=== PATIENT | male | born 1985 | race Caucasian/White ===

== ENCOUNTER 2018-08-06 03:44 | Emergency (ER) | payer SELFPAY ==
[~2018-08-06] VITALS: Ht 185.4 cm; Wt 146.1 kg
--- NOTE | 2018-08-06 04:00 | NUR ---
NOT IN WAITING ROOM
[2018-08-06 04:26] VITALS: BP 138/107
== END 2018-08-06 04:28 | disposition home or self-care (01) ==
LOC: ER 03:44
DX: F41.1 Generalized anxiety disorder (principal); F31.12 Bipolar disorder, current episode manic without psychotic features, moderate
CPT/HCPCS: 99282

== ENCOUNTER 2018-10-11 01:36 | Emergency (ER) | payer SELFPAY ==
[~2018-10-11] VITALS: Ht 185.4 cm; Wt 146.1 kg
--- NOTE | 2018-10-11 02:07 | NUR ---
PATIENT ADMITS TO SI CURRENTLY, STATING, "I JUST WANT TO ." PATIENT STATES LAST SUICIDE ATTEMPTS WAS 5DAYS AGO WITH OD OF ASPIRIN. PATIENT WITHOUT CLEAR PLAN. DENIES HOMICIDAL IDEATIONS AT THIS TIME. WILL CONTINUE TO MONITOR
[2018-10-11] MEDS ORDERED: ZIPRASIDONE 20 MG VIAL IM STA (02:09)
[2018-10-11 02:32] LABS: BASOPHILS # (AUTO) 0.1 (0.0-0.1); BASOPHILS % 0.5 % (0.0-1.0); EOSINOPHILS # (AUTO) 0.1 (0.0-0.4); EOSINOPHILS % 0.9 % (0.0-6.0); HEMOGLOBIN 14.8 g/dL (14.0-18.0); LYMPHOCYTES # (AUTO) 3.2 (1.0-3.2); LYMPHOCYTES % 30.3 % (18.0-39.1); MEAN CORPUSCULAR HEMOGLOBIN 31.4 pg (28-32); MEAN CORPUSCULAR HGB CONC 35.2 g/dL (31-35); MONOCYTES # (AUTO) 1.2 (0.2-0.8); MONOCYTES % 11.3 % (4.4-11.3); NEUTROPHILS % 56.8 % (38.7-80.0); PLATELET COUNT 284 x10e3/uL (140-360); RED BLOOD COUNT 4.72 x10e6/uL (4.3-5.7); RED CELL DISTRIBUTION WIDTH 12.4 % (11.7-14.4)
[2018-10-11 02:55] LABS: ALANINE AMINOTRANSFERASE 46 IU/L (0-55); ALBUMIN 3.8 g/dL (3.5-5.0); ALBUMIN/GLOBULIN RATIO 1.3 (0.8-2.0); ALKALINE PHOSPHATASE 58 IU/L (40-150); ANION GAP 14.3 mmol/L (8-16); BLOOD UREA NITROGEN 18 mg/dL (7-26); BUN/CREATININE RATIO 18 (6-25); CALCIUM 9.3 mg/dL (8.4-10.2); CARBON DIOXIDE 21 mmol/L (22-29); CHLORIDE 107 mmol/L (98-107); CREATINE KINASE 1201 IU/L (30-200); CREATININE, SERUM 1.02 mg/dL (0.72-1.25); EST GLOMERULAR FILTRATION RATE > 60 ML/MIN (60-); GLUCOSE 96 mg/dL (74-118); POTASSIUM 3.3 mmol/L (3.5-5.1); SODIUM 139 mmol/L (136-145)
[2018-10-11 02:56] LABS: ACETAMINOPHEN < 3 ug/mL (10-30); SALICYLATE < 5.0 mg/dL (0-30)
[2018-10-11] MEDS ORDERED: SODIUM CHLORIDE 0.9% 1000ML 1,000 ML IV SCH (03:30)
[2018-10-11 03:42] LABS: AMPHETAMINES SCREEN,URINE POSITIVE (NEGATIVE); BENZODIAZEPINES SCREEN,URINE NEGATIVE (NEGATIVE); PHENCYCLIDINE SCREEN,URINE NEGATIVE (NEGATIVE)
--- NOTE | 2018-10-11 03:50 | NUR ---
MAT TEAM CALLED FOR ASSESSMENT
--- NOTE | 2018-10-11 07:00 | NUR ---
RECEIVED REPORT FROM OFF GOING NURSE. PATIENT IN ROOM IN BED. RESTING QUIETLY WITH EYES CLOSED. WILL CONTINUE TO MONITOR.
--- NOTE | 2018-10-11 08:01 | NUR ---
report to belle victoria
--- NOTE | 2018-10-11 09:15 | NUR ---
PATIENT IN ROOM IN BED. RESTING QUIETLY WITH EYES CLOSED. NO S/S OF ACUTE DISTRESS. RESP EVEN AND NONLABORED. BED DOWN 1:1 SITTER IN ROOM.
[2018-10-11 09:53] VITALS: BP 113/76
--- NOTE | 2018-10-11 10:08 | NUR ---
PATIENT IN ROOM IN BED. RESTING QUIETLY WITH EYES CLOSED. NO S/S OF ACUTE DISTRESS. 1:1 SITTER AT BEDSIDE.
--- NOTE | 2018-10-11 11:20 | NUR ---
PATIENT AWAKE AND SITTING AT BEDSIDE. NO S/S OF ACUTE DISTRESS. PATIENT COOPERATIVE AND POLITE. 1:1 SITTER AT BEDSIDE.
--- NOTE | 2018-10-11 13:17 | NUR ---
GOT PHONE CALL FROM [facility] [employer] AND STATES THAT THEY NEED CARDIAC MARKERS REDRAWN DUE TO [employer] AND [employer]. TO FAX TO NUMBER [phone]
--- NOTE | 2018-10-11 13:50 | NUR ---
patient in room in bed. awake and alert. no s/s of acute distress. resp even and nonlabored. 1:1 sitter in room with patient.
[2018-10-11] MEDS ORDERED: SODIUM CHLORIDE 0.9% 1000ML 1,000 ML IV STA (14:01)
[2018-10-11 15:08] LABS: CREATINE KINASE MB 7.6 ng/mL (0-5.0)
[2018-10-11] MEDS ORDERED: LORAZEPAM INJ 2 MG/ML VIAL IV PRN (15:45)
--- NOTE | 2018-10-11 16:13 | NUR ---
iv discontinued due to patient reports of discomfort. patient AAO, is very anxious and aggitated. received order for prn ativan ivp. 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
--- NOTE | 2018-10-11 17:04 | NUR ---
PATIENT IN ROOM IN BED. RESTING QUIETLY WITH EYES CLOSED. NO S/S OF ACUTE DISTRESS. 1:1 SITTER IN ROOM
--- NOTE | 2018-10-11 18:19 | NUR ---
PATIENT IN ROOM IN BED. NO S/S OF ACUTE DISTRESS. 1:1 SITTER AT BEDSIDE. PENDING ROOM ASSIGNMENT.
[2018-10-11] MEDS ORDERED: LORAZEPAM 1 MG TAB PO PRN (19:00)
[2018-10-11] MEDS ORDERED: ACETAMINOPHEN 325 MG TAB ONE (22:09)
[2018-10-11] MEDS ORDERED: ACETAMINOPHEN 325 MG TAB PO PRN (22:15)
--- NOTE | 2018-10-11 23:22 | NUR ---
PT REQUESTING ATIVAN AND "SOMETHING TO EAT". PT GIVEN PO ATIVAN PER ORDER AND SANDWICH. VSS PT A&O X4, NAD NOTED
--- NOTE | 2018-10-12 00:56 | NUR ---
SPOKE TO PETER AT [facility] FOR STATUS UPDATE, PETER STATES THAT "HE (PT) IS JUST WAITING ON A BED, BUT IT WILL PROBABLY BE SUNDAY OR SUNDAY BECAUSE WE ([facility]) DO NOT DISCHARGE ON THE WEEKEND."
--- NOTE | 2018-10-12 01:05 | NUR ---
DR GARCIA AT BEDSIDE, REEVALUATED PT, PT DENIES SUICIDAL OR HOMICIDAL IDEATION. PT STATES HE WOULD LIKE TO GO HOME IN THE MORNING WITH PRESCRIPTION FOR RISPERDAL.
--- NOTE | 2018-10-12 05:10 | NUR ---
DR GARCIA SPOKE TO PT AT LENGTH, PT CONTINUES TO DENY SUICIDAL OR HOMICIDAL IDEATION. PT READ AND SIGNED NO SUICIDE CONTRACT AND GIVEN A COPY. PT DISCHARGED HOME WITH PRESCRIPTION FOR RISPERDAL.
== END 2018-10-12 05:22 | disposition home or self-care (01) ==
LOC: ER 01:36
DX: F25.0 Schizoaffective disorder, bipolar type (principal); F15.129 Other stimulant abuse with intoxication, unspecified
CPT/HCPCS: 36415; 80053; 80307; 80320; 80329 ×2; 82550; 82553; 84484; 85025; 93005; 99284; J2060; J3486; J7030

== ENCOUNTER 2018-11-26 18:48 | Emergency (ER) | payer SELFPAY ==
[~2018-11-26] VITALS: Ht 185.4 cm; Wt 146.1 kg
== END 2018-11-26 19:30 | disposition left against medical advice (07) ==
LOC: ER 18:48
DX: F31.9 Bipolar disorder, unspecified (principal); F20.0 Paranoid schizophrenia; F60.3 Borderline personality disorder; M10.9 Gout, unspecified

== ENCOUNTER → 2018-11-26 | Emergency (ER) ==
--- NOTE | 2018-11-26 21:05 | NUR ---
ACCOUNT CREATED BY MISTAKE. THIS IS A DUPLICATE ACCOUNT. PT ALREADY D/C OFF TRACKER.
== END | disposition left against medical advice (07) ==
LOC: ER 18:41
DX: R69 Illness, unspecified (principal)

== ENCOUNTER 2020-06-20 22:13 | Emergency (ER) | payer SELFPAY ==
[~2020-06-20] VITALS: Ht 185.4 cm; Wt 146.1 kg
[2020-06-20] MEDS ORDERED: IBUPROFEN 600 MG TAB PO STA (23:01)
[2020-06-20] MEDS ORDERED: IBUPROFEN 600 MG TAB ONE (23:13)
[2020-06-20] MEDS ORDERED: NAPROSYN500 MG PO (23:43)
== END 2020-06-21 01:20 | disposition home or self-care (01) ==
LOC: FSED 23:01
DX: S33.5XXA Sprain of ligaments of lumbar spine, initial encounter (principal); W01.0XXA Fall on same level from slipping, tripping and stumbling without subsequent striking against object, initial encounter; Y93.01 Activity, walking, marching and hiking; Y92.512 Supermarket, store or market as the place of occurrence of the external cause; F20.9 Schizophrenia, unspecified; F17.210 Nicotine dependence, cigarettes, uncomplicated
CPT/HCPCS: 71046; 72100; 99282

== ENCOUNTER 2020-07-31 11:06 | Emergency (ER) | payer SELFPAY ==
[~2020-07-31] VITALS: Ht 188 cm; Wt 129.3 kg
[~2020-07-31 11:06] MED LIST: NAPROSYN500 MG PO
[2020-07-31] MEDS ORDERED: RISPERIDONE 1 MG TAB PO STA (11:18)
[2020-07-31 12:06] VITALS: BP 165/95
== END 2020-07-31 12:07 | disposition home or self-care (01) ==
LOC: ER 11:20
DX: F20.9 Schizophrenia, unspecified (principal); F31.9 Bipolar disorder, unspecified; M10.9 Gout, unspecified
CPT/HCPCS: 99282

== ENCOUNTER 2020-12-09 05:53 | Emergency (ER) | payer SELFPAY ==
[~2020-12-09] VITALS: Ht 188 cm; Wt 129.3 kg
[2020-12-09 06:23] LABS: BASOPHILS # (AUTO) 0.1 (0.0-0.1); BASOPHILS % 0.3 % (0.0-1.0); EOSINOPHILS # (AUTO) 0.1 (0.0-0.4); EOSINOPHILS % 0.3 % (0.0-6.0); HEMATOCRIT 44.3 % (38.2-49.6); HEMOGLOBIN 14.7 g/dL (14.0-18.0); LYMPHOCYTES # (AUTO) 2.9 (1.0-3.2); LYMPHOCYTES % 17.6 % (18.0-39.1); MEAN CORPUSCULAR HEMOGLOBIN 30.2 pg (28-32); MEAN CORPUSCULAR HGB CONC 33.2 g/dL (31-35); MONOCYTES # (AUTO) 1.1 (0.2-0.8); MONOCYTES % 6.9 % (4.4-11.3); NEUTROPHILS # (AUTO) 12.4 (2.1-6.9); NEUTROPHILS % 74.4 % (38.7-80.0); PLATELET COUNT 255 x10e3/uL (140-360); RED BLOOD COUNT 4.87 x10e6/uL (4.3-5.7); RED CELL DISTRIBUTION WIDTH 13.1 % (11.7-14.4)
[2020-12-09] MEDS ORDERED: RISPERDAL1 MG PO ×2 (06:26→09:22)
[2020-12-09 06:41] LABS: ALBUMIN 4.2 g/dL (3.5-5.0); ALBUMIN/GLOBULIN RATIO 1.1 (0.8-2.0); ANION GAP 16.8 mmol/L (8-16); CALCIUM 9.5 mg/dL (8.4-10.2); CREATININE, SERUM 1.06 mg/dL (0.72-1.25); POTASSIUM 3.8 mmol/L (3.5-5.1)
[2020-12-09 06:46] LABS: SALICYLATE < 5.0 mg/dL (0-30)
[2020-12-09 06:56] LABS: AMPHETAMINES SCREEN,URINE POSITIVE (NEGATIVE); PHENCYCLIDINE SCREEN,URINE NEGATIVE (NEGATIVE)
[2020-12-09 06:57] LABS: BENZODIAZEPINES SCREEN,URINE NEGATIVE (NEGATIVE)
[2020-12-09 07:05] LABS: CLARITY,URINE CLEAR (CLEAR); COLOR,URINE YELLOW (YELLOW); LEUKOCYTE ESTERASE ,URINE NEGATIVE (NEGATIVE); NITRITE,URINE NEGATIVE (NEGATIVE); PROTEIN,URINE DIPSTICK 1+ (NEGATIVE)
[2020-12-09 07:06] LABS: KETONES,URINE 1+ (NEGATIVE); URINE UROBILINOGEN 0.2 mg/dL (0.2 - 1)
[2020-12-09 07:17] LABS: BACTERIA,URINE FEW /HPF; EPITHELIAL CELLS,URINE RARE /LPF; MUCUS,URINE RARE (RARE); RBC,URINE 0-5 /HPF (0-5); WBC,URINE (MAN) 0-5 /HPF (0-5)
[2020-12-09 07:32] LABS: THYROID STIMULATING HORMONE 3.131 uIU/mL (0.350-4.940)
[2020-12-09] MEDS: RISPERIDONE 1 MG TAB PO SCH (07:57)
== END 2020-12-09 10:08 | disposition home or self-care (01) ==
LOC: ER 06:05
DX: F20.9 Schizophrenia, unspecified (principal); M10.9 Gout, unspecified
CPT/HCPCS: 36415; 80053; 80307; 80320; 80329; 81001; 84443; 85025; 99284